=== PATIENT | female | born 1995 | race Caucasian/White ===

== ENCOUNTER → 2016-10-21 | Outpatient (CLI) | payer BC ==
--- NOTE | 2016-10-21 13:58 | Diagnostic Imaging Report ---
INDICATION: Pelvic pain, right greater than left. COMPARISON: None. DISCUSSION: Transabdominal and transvaginal sonographic evaluation of the pelvis was performed. The uterus is normal in echotexture and size measuring 7.7 x 3.7 x 2.8 cm. Normal endometrial thickness measuring 0.3 cm. The ovaries appear normal in echotexture and size bilaterally with normal color Doppler blood flow. The right ovary measures 2.0 x 1.5 x 2.7 cm. The left ovary measures 2.7 x 2.1 x 2.6 cm. No abnormal adnexal mass or fluid. IMPRESSION: Unremarkable pelvic ultrasound. Dictated by: Dictated on workstation # [id number]
== END ==
LOC: RAD 12:54
PROVIDERS: ATTEND Nurse Practitioner Family
DX: R10.2 Pelvic and perineal pain (principal)
CPT/HCPCS: 76830; 76856

== ENCOUNTER 2017-05-10 21:48 | Emergency (ER) | payer BC ==
[~2017-05-10] VITALS: Ht 172.7 cm; Wt 65.8 kg
--- OUTSIDE RECORDS SUMMARY | 2017-05-10 21:54 | XMS REPORT ---
Author Author MAC LUU Organization [facility] Address [address] [place] [address] Care Team Providers Care Commercial Artist Lettering Name Role Phone LUU, MAC Unavailable PROBLEMS Unknown Problems ALLERGIES Substance Reaction Event Type Date Status N.K.D.A. Unknown Non Drug Allergy Jul, Unknown SOCIAL HISTORY No smoking Hx information available PLAN OF CARE Activity Details Follow Up 1 Year, prn Reason: VITAL SIGNS Height 5 ft 8 in in 2016-08-17 Weight 158.5 lbs 2016-08-17 Temperature 98.1 degrees Fahrenheit 2016-08-17 Heart Rate 62 bpm 2016-08-17 Respiratory Rate 16 2016-08-17 BMI 24.10 kg/m2 2016-08-17 Blood pressure systolic 98 mmHg 2016-08-17 Blood pressure diastolic 70 mmHg 2016-08-17 MEDICATIONS Medication Instructions Dosage Frequency Start Date End Date Duration Status Microgestin 1.5/30 1.5-30 MG-MCG Active RESULTS No Results PROCEDURES Procedure Date Ordered Related Diagnosis Body Site TB INTRADERMAL 2016-08-17 Negative Structure of left forearm Office Visit, Est Pt., Level 4 Aug 17, 2016 TB INTRADERMAL TEST Aug 17, 2016 IMMUNIZATIONS No Known Immunizations
[2017-05-10] MEDS ORDERED: NORG1TAB14 PO (22:24)
--- NOTE | 2017-05-10 22:31 | ED General ---
General Chief Complaint: Allergic Reaction Stated Complaint: RASH Nursing Triage Note: PT REPORTS A RASH DEVELOPED ON MONDAY JUST ON ABD. PT GOT THIS WEEKEND. PT SAW A PCP FOR STOMACH ISSUE LAST MON AND RE-EVALUATED YESTERDAY. RASH DISCUSSED Nursing Sepsis Screen: No Definite Risk Source of Information: Patient Exam Limitations: No Limitations History of Present Illness Time Seen by Provider: 22:05 Initial Comments This 22-year-old young lady presents to the emergency room with complaints of a pruritic rash that started on her abdomen and is spreading now to her chest and thighs. The rash started yesterday. She is unaware of what triggered the rash. She has had gastrointestinal symptoms for over a week. She got last weekend and stayed in hotels and also spent time outdoors. Gastrointestinal symptoms are improving. She denies any fever, myalgia, or headache. She has had no known tick bites. She has tried hydrocortisone cream with some improvement. Xyzal did not seem to improve her itching. Allergies and Home Medications Home Medications Norgestimate-Ethinyl Estradiol 1 Each Tablet, 1 EACH PO DAILY, (Reported) Prednisone 20 Mg Tab, 20 MG PO DAILY, #4 Prescribed by: TRINITY MARTINEZ on 05/10/17 5552 Constitutional: no symptoms reported EENTM: no symptoms reported Respiratory: no symptoms reported Cardiovascular: no symptoms reported Gastrointestinal: see HPI, diarrhea Genitourinary: no symptoms reported : No Musculoskeletal: no symptoms reported Skin: see HPI Psychiatric/Neurological: No Symptoms Reported Hematologic/Lymphatic: No Symptoms Reported Past Tuzlztc-Apjwxd-Ujuewo Hx Patient Social History Alcohol Use: Occasionally Uses Recreational Drug Use: No Smoking Status: Never a Smoker 2nd Hand Smoke Exposure: No Recent Foreign Travel: No Contact w/Someone Who Travel: No Recent Infectious Disease Expo: No Recent Hopitalizations: No Seasonal Allergies Seasonal Allergies: No Surgeries History of Surgeries: Yes (WISDOM TEETH, SVT ABLATION) Surgeries: Adenoidectomy, Tonsillectomy Respiratory History of Respiratory Disorde: No Cardiovascular History of Cardiac Disorders: Yes (SVT ABLATION) Cardiac Disorders: Irregular Heartbeat Neurological History of Neurological Disord: No Genitourinary History of Genitourinary Disor: No Gastrointestinal History of Gastrointestinal Di: No Musculoskeletal History of Musculoskeletal Dis: No Endocrine History of Endocrine Disorders: No HEENT History of HEENT Disorders: No Cancer History of Cancer: No Psychosocial History of Psychiatric Problem: No Integumentary History of Skin or Integumenta: Yes Skin/Integumentary Disorders: Recent Skin Changes Blood Transfusions History of Blood Disorders: No Family Medical History Significant Family History: Heart Disease (palpitations) Physical Exam Vital Signs Vital Sign - Last 12Hours 05/10/17 21:56 Temp 97.2 Pulse 70 Resp 20 B/P (MAP) 123/96 Pulse Ox 98 O2 Delivery Room Air Capillary Refill : Less Than 3 Seconds General Appearance: No Apparent Distress, WD/WN HEENT: PERRL/EOMI, Normal ENT Inspection Neck: Normal Inspection Respiratory: Lungs Clear, Normal Breath Sounds, No Accessory Muscle Use, No Respiratory Distress Cardiovascular: Regular Rate, Rhythm, No Edema, No Murmur Extremity: Normal Inspection, No Pedal Edema Neurologic/Psychiatric: Alert, Oriented x3, Normal Mood/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 Rash could also be related to some other exposure over the weekend such as oak mites or a food allergy. Departure Impression Impression: Primary Impression: Rash Additional Impression: Rash of body Disposition: 01 HOME, SELF-CARE Condition: Stable Departure-Patient Inst. Decision time for Depature: 22:20 Referrals: TATA WALLS MD (PCP/Family) Primary Care Physician Patient Instructions: Skin Rash (DC) Add. Discharge Instructions: You may continue using topical steroids such as hydrocortisone or topical anti- itch creams such as diphenhydramine. You may continue to use Benadryl ( diphenhydramine) per package instructions. If you would like a nondrowsy alternative, you may use antihistamine such as Xyzal, Claritin, Zyrtec, or their generic equivalents. Return to care if you develop additional symptoms such as fever, headaches, body aches, etc. associated with this rash. At that point he may need to be screened for tickborne diseases. All discharge instructions reviewed with patient and/or family. Voiced understanding. Scripts Prednisone (Prednisone) 20 Mg Tab 20 MG PO DAILY, #4 TAB Prov: TRINITY ALMODOVAR MD 05/10/17 TRINITY ALMODOVAR MD May 10, 2017 22:31
[2017-05-10] MEDS ORDERED: PRD20T PO (22:32)
[2017-05-10 22:35] VITALS: BP 123/96
== END 2017-05-10 22:35 | disposition home or self-care (01) ==
LOC: EDUNIT# 21:48 → ER 21:50
DX: R21 Rash and other nonspecific skin eruption (principal); Z90.89 Acquired absence of other organs; Z82.49 Family history of ischemic heart disease and other diseases of the circulatory system
CPT/HCPCS: 99281

== ENCOUNTER 2017-08-20 20:59 | Emergency (ER) | payer BC ==
[~2017-08-20] VITALS: Ht 172.7 cm; Wt 65.8 kg
[~2017-08-20 20:59] MED LIST: NORG1TAB14 PO; PRD20T PO
[2017-08-20] MEDS ORDERED: PROMETHAZINE/ CODEINE SYRUP 5 ML UDC PO ONE (22:15)
[2017-08-20] MEDS ORDERED: CODE118S2 PO (22:23)
[2017-08-20] MEDS ORDERED: AZIT250T12 PO (22:23)
--- NOTE | 2017-08-20 22:23 | ED Cough/URI ---
General Chief Complaint: Cough/Cold/Flu Symptoms Stated Complaint: CHEST PAIN SOA COUGH Nursing Triage Note: PT TO ED 10 W/ C/O COUGH ONSET X3 DAYS, WORSE TODAY. REPORTS HAS TAKEN OTC MEDS W/O IMPROVEMENT. ALSO C/O INTERMITTENT CHEST PAIN UPON INSPIRATION ET COUGHING. NO OTHER C/O VOICED Source: patient Exam Limitations: no limitations History of Present Illness Date Seen by Provider: Aug 20, 2017 Time Seen by Provider: 22:21 Initial Comments To ER with some right-sided chest pain, intermittent shortness of breath and a cough. Last weekend 7 days ago she had high fevers with a cough and runny nose. She stayed home from work and school on the symptoms seemed to have resolved but the cough persisted has been more intense today. Timing/Duration: just prior to arrival Severity/Quality: dry cough Associated Symptoms: cough Allergies and Home Medications Allergies Coded Allergies: No Known Drug Allergies (Unverified , 08/20/17) Home Medications Azithromycin 250 Mg Tablet, 250 MG PO UD, #6 TAKE 2 TABLETS ON DAY ONE THEN TAKE 1 TABLET DAILY FOR FOUR MORE DAYS Prescribed by: ELY NEUMANN on 08/20/17 2223 Norgestimate-Ethinyl Estradiol 1 Each Tablet, 1 EACH PO DAILY, (Reported) Prednisone 20 Mg Tab, 20 MG PO DAILY, #4 Prescribed by: TRINITY MARTINEZ on 05/10/17 2232 Promethazine HCl/Codeine 118 Ml Syrup, 5 ML PO Q4H PRN for COUGH, #120 Prescribed by: ELY NEUMANN on 08/20/17 2223 Constitutional: see HPI EENTM: see HPI Respiratory: see HPI, cough Cardiovascular: no symptoms reported Genitourinary: no symptoms reported Musculoskeletal: no symptoms reported Skin: no symptoms reported Psychiatric/Neurological: No Symptoms Reported Past Mvebeus-Dzvmgn-Ffkjep Hx Patient Social History Alcohol Use: Denies Use Recreational Drug Use: No Smoking Status: Never a Smoker 2nd Hand Smoke Exposure: No Recent Foreign Travel: No Contact w/Someone Who Travel: No Recent Infectious Disease Expo: No Recent Hopitalizations: No Physical Abuse: No Sexual Abuse: No Mistreated: No Fear: No Seasonal Allergies Seasonal Allergies: No Surgeries History of Surgeries: Yes (WISDOM TEETH, SVT ABLATION) Surgeries: Adenoidectomy, Tonsillectomy Respiratory History of Respiratory Disorde: No Cardiovascular History of Cardiac Disorders: Yes (SVT ABLATION) Cardiac Disorders: Irregular Heartbeat Neurological History of Neurological Disord: No Genitourinary History of Genitourinary Disor: No Gastrointestinal History of Gastrointestinal Di: No Musculoskeletal History of Musculoskeletal Dis: No Endocrine History of Endocrine Disorders: No HEENT History of HEENT Disorders: No Cancer History of Cancer: No Psychosocial History of Psychiatric Problem: No Suicide Risk Score: 0 Integumentary History of Skin or Integumenta: Yes Skin/Integumentary Disorders: Recent Skin Changes Blood Transfusions History of Blood Disorders: No Family Medical History Significant Family History: Heart Disease Physical Exam Vital Signs Vital Sign - Last 12Hours 08/20/17 21:27 Temp 98.1 Pulse 74 Resp 20 B/P (MAP) 127/90 (102) Pulse Ox 100 O2 Delivery Room Air Capillary Refill : Less Than 3 Seconds General Appearance: WD/WN, no apparent distress Eyes: Bilateral Eye Normal Inspection, Bilateral Eye PERRL, Bilateral Eye EOMI HEENT: PERRL/EOMI, normal ENT inspection Neck: non-tender, full range of motion Respiratory: normal breath sounds, no respiratory distress, no accessory muscle use Cardiovascular: regular rate, rhythm, no murmur Gastrointestinal: normal bowel sounds, non tender, soft Extremities: normal range of motion, non-tender Neurologic/Psychiatric: alert, normal mood/affect, oriented x 3 Skin: normal color, warm/dry Progress/Results/Core Measures Suspected Sepsis Recent Fever Within 48 Hours: No Infection Criteria Present: None New/Unexplained Altered Menta: No Sepsis Screen: No Definite Risk Sepsis Diagnosis: SIRS Temperature:98.1 Pulse: 74 Respiratory Rate: 20 Blood Pressure 127 /90 Mean: 102 Results/Orders My Orders Orders - ELY NEUMANN APRN Ekg Tracing (08/20/17 21:47) Chest Pa/Lat (2 View) (08/20/17 21:47) Promethazine/ Codeine Syrup (Phenergan W (08/20/17 22:15) Ekg Tracing (08/20/17 22:26) Medications Given in ED Current Medications Medications Dose Ordered Sig/Deacon Route Start Time Stop Time Status Last Admin Dose Admin Promethazine HCl/ Codeine 5 ml ONCE ONCE PO 08/20/17 22:15 08/20/17 22:16 DC 08/20/17 22:22 5 ML Vital Signs/I&O Vital Sign - Last 12Hours 08/20/17 21:27 Temp 98.1 Pulse 74 Resp 20 B/P (MAP) 127/90 (102) Pulse Ox 100 O2 Delivery Room Air Capillary Refill : Less Than 3 Seconds Blood Pressure Mean: 102 Departure Impression Impression: Primary Impression: Bronchitis Disposition: 01 HOME, SELF-CARE Condition: Stable Departure-Patient Inst. Decision time for Depature: 22:22 Referrals: TATA WALLS MD (PCP/Family) Primary Care Physician Patient Instructions: Acute Bronchitis, Adult (DC) Add. Discharge Instructions: 1. Return to ER for any concerns 2. Follow-up with your doctor next week 3. All discharge instructions reviewed with patient and/or family. Voiced understanding. Scripts Promethazine HCl/Codeine (Promethazine-Codeine Syrup) 118 Ml Syrup 5 ML PO Q4H Y for COUGH, #120 ML Prov: ELY NEUMANN RN TRANSITIONAL 08/20/17 Azithromycin (Azithromycin) 250 Mg Tablet 250 MG PO UD, #6 TAB TAKE 2 TABLETS ON DAY ONE THEN TAKE 1 TABLET DAILY FOR FOUR MORE DAYS Prov: ELY NEUMANN RN TRANSITIONAL 08/20/17 ELY NEUMANN RN TRANSITIONAL Aug 20, 2017 22:23
[2017-08-20 22:31] VITALS: BP 123/88
--- NOTE | 2017-08-21 07:57 | Diagnostic Imaging Report ---
INDICATION: Chest pain and cough. PA and lateral chest obtained at 10:28 p.m. FINDINGS: Heart and mediastinal silhouette are normal in appearance. The lungs are clear. There is no pneumothorax or pleural fluid. IMPRESSION: No acute process in the chest. Dictated by: Dictated on workstation # [id number]
== END 2017-08-20 22:31 | disposition home or self-care (01) ==
LOC: EDUNIT# 20:59 → ER 21:02
DX: J40 Bronchitis, not specified as acute or chronic (principal); Z90.49 Acquired absence of other specified parts of digestive tract; Z82.49 Family history of ischemic heart disease and other diseases of the circulatory system
CPT/HCPCS: 71046; 93005

== ENCOUNTER → 2018-01-01 | Outpatient (CLI) | payer BC, OTHER ==
[~2018-01-01] MED LIST changes: +AZIT250T12 PO; +CODE118S2 PO
--- NOTE | 2018-01-01 15:32 | Diagnostic Imaging Report ---
INDICATION: anatomical assessment. TECHNIQUE: Multiple real-time grayscale images were obtained over the gravid uterus. COMPARISON: None. FINDINGS: Cervical length at 4.2 cm. Placenta is posterior and without evidence for previa. Fetus is currently in transverse position. There appears to be normal amount of amniotic fluid. There is currently what appears to be slight dilatation of the bilateral renal pelves. Urinary bladder is not well visualized. Additionally, the cardiac structures are not well assessed. Stomach, umbilical cord insertion site, visualized portions of the spine, extremities, and intracranial structures overall appearing relatively unremarkable. Maxillofacial structures are limited in visualization. Biometrical measurements are as follows: Biparietal 4.39 cm, age 19 weeks 2 days. Head circumference 16.07 cm, age 19 weeks 0 days. Abdominal circumference 13.68 cm, age 19 weeks 1 days. Femur length 2.66 cm, age 18 weeks 1 days. Sonographic estimate age: 19 weeks 0 days. Sonographic estimated date of delivery: 05/28/18. Estimated Weight: 252 gm (+/- 37 gm). LMP percentile: 43%. heart rate: 155 beats per minute. number: 1 of 1. IMPRESSION: 1. Single viable intrauterine , currently in transverse position. Sonographic estimated age is 19 weeks for an estimated date of delivery of May 28, 2018. 2. The bilateral renal pelves are slightly prominent. Additionally, the urinary bladder, cardiac structures, and maxillofacial structures are not well assessed. Consideration for short-term followup repeat imaging would be recommended. Dictated by: Dictated on workstation # [id number]
== END ==
LOC: RAD 12-15 08:14
PROVIDERS: ATTEND Obstetrics & Gynecology
DX: Z34.92 Encounter for supervision of normal pregnancy, unspecified, second trimester (principal); Z3A.19 19 weeks gestation of pregnancy
CPT/HCPCS: 76805

== ENCOUNTER 2018-10-08 19:11 | Emergency (ER) | payer BC, OTHER ==
[~2018-10-08] VITALS: Ht 172.7 cm; Wt 68.0 kg
[~2018-10-08 19:11] MED LIST changes: +ACHD5005 PO; +Benzocaine/Menthol TP; -CODE118S2 PO; +CODE118S4 PO; +DOCU100C37 PO; +FERR325T18 PO
--- NOTE | 2018-10-08 19:32 | ED GU-Female ---
General Chief Complaint: -Female Stated Complaint: ALLERGIC REACTION Source: patient Exam Limitations: no limitations History of Present Illness Date Seen by Provider: Oct 08, 2018 Time Seen by Provider: 19:26 Initial Comments To ER with labial redness swelling itching and burning for the past 2 days, she suspected a yeast infection so she used Monistat this morning at about 11 or noon. Since then she's had progressive redness and burning, concerned that she may have an allergic reaction to the Monistat. Her symptoms are all localized to the labia. Denies fevers chills or dysuria. Timing/Duration: constant Severity/Quality: moderate Location: vaginal Radiation: none Activities at Onset: none Prior Genitourinary Problems: none Allergies and Home Medications Allergies Coded Allergies: No Known Drug Allergies (Unverified , 08/20/17) Home Medications No Active Prescriptions or Reported Meds Patient Home Medication List Home Medication List Reviewed: Yes Review of Systems Review of Systems Constitutional: see HPI EENTM: see HPI Respiratory: no symptoms reported Cardiovascular: no symptoms reported Genitourinary: see HPI Musculoskeletal: no symptoms reported Skin: no symptoms reported Psychiatric/Neurological: No Symptoms Reported Endocrine: No Symptoms Reported Past Qmuivuc-Yszevy-Wmitzk Hx Patient Social History 2nd Hand Smoke Exposure: No Recent Foreign Travel: No Contact w/Someone Who Travel: No Recent Hopitalizations: No Immunizations Up To Date PED Vaccines UTD: Yes Seasonal Allergies Seasonal Allergies: No Past Medical History Surgeries: Yes Adenoidectomy, Tonsillectomy Respiratory: No Cardiac: No Irregular Heartbeat Neurological: No Genitourinary: No Gastrointestinal: Yes Gastroesophageal Reflux Musculoskeletal: No Endocrine: No HEENT: No Cancer: No Psychosocial: No Integumentary: No Recent Skin Changes Blood Disorders: No Adverse Reaction/Blood Tranf: No Family Medical History Heart Disease Physical Exam Vital Signs Vital Signs - First Documented 10/08/18 19:26 Temp 97.4 Pulse 62 Resp 20 B/P (MAP) 152/96 (114) Pulse Ox 98 Capillary Refill : Height, Weight, BMI Height: 5'8.00" Weight: 191lbs. 0.0oz. 86.515427st; 29.0 BMI Method:Stated General Appearance: WD/WN, no apparent distress HEENT: PERRL/EOMI, normal ENT inspection Respiratory: no respiratory distress, no accessory muscle use Gastrointestinal: normal bowel sounds, non tender Genital/Rectal: other (genital exam done with Hollie QUINTANA at the bedside. The labia minora are erythematous and with a whitish adherent discharge and tender to palpation. No ulcers are visualized. The appearance is consistent with candidal infection. I suspect her worsening of symptoms after the use of Monistat is not from allergic reaction but simply chemical irritation of the tissues which are already macerated from the candidal infection) Neurologic/Psychiatric: alert, normal mood/affect, oriented x 3 Skin: normal color, warm/dry Progress/Results/Core Measures Suspected Sepsis SIRS Temperature: Pulse: Respiratory Rate: Blood Pressure / Mean: Results/Orders My Orders Orders - ELY NEUMANN APRN Wet Prep (10/08/18 19:25) Fluconazole Tablet (Ed Only) (Diflucan T (10/08/18 19:45) Vital Signs/I&O 10/08/18 19:26 Temp 97.4 Pulse 62 Resp 20 B/P (MAP) 152/96 (114) Pulse Ox 98 Capillary Refill : Departure Impression Primary Impression: Vaginal candidiasis Disposition: 01 HOME, SELF-CARE Condition: Stable Departure-Patient Inst. Decision time for Depature: 19:33 Referrals: TATA LANDAVERDE MD (PCP/Family) Primary Care Physician Patient Instructions: Vaginal Yeast Infection Add. Discharge Instructions: 1. Do not use any more topical medications for the next few days. Follow-up with Dr. Landaverde next week. Take the fluconazole as directed. All discharge instructions reviewed with patient and/or family. Voiced understanding. Scripts Fluconazole (Diflucan) 150 Mg Tablet 150 MG PO Q48H, #2 TAB Prov: ELY NEUMANN APRN 10/08/18 Metronidazole (Flagyl) 500 Mg Tablet 500 MG PO BID, #14 TAB Prov: ELY NEUMANN APRN 10/08/18 Work/School Note: Work Release Form Date Seen in the Emergency Department: Oct 08, 2018 Return to Work: Oct 10, 2018 Copy Copies To 1: TATA LANDAVERDE MD, PETER J APRN Oct 08, 2018 19:32
[2018-10-08] MEDS ORDERED: FLUC150T2 PO (19:34)
[2018-10-08] MEDS ORDERED: FLUCONAZOLE 150 MG TABLET (ED ONLY) PO ONE (19:45)
[2018-10-08] MEDS ORDERED: METR500T PO (19:59)
[2018-10-08] MEDS ORDERED: FLUC150T PO (20:00)
[2018-10-08 20:07] VITALS: BP 123/78
== END 2018-10-08 20:07 | disposition home or self-care (01) ==
LOC: EDUNIT# 19:11 → ER 19:12
DX: B37.3 Candidiasis of vulva and vagina (principal); K21.9 Gastro-esophageal reflux disease without esophagitis; Z90.89 Acquired absence of other organs
CPT/HCPCS: 87210; 99284